=== PATIENT | male | born 1955 | race Caucasian/White ===

== ENCOUNTER 2016-06-27 16:30 | Emergency (ER) | payer BC, OTHER ==
[2016-06-27] MEDS ORDERED: MORPHINE 4 MG/ML SYR ONE (16:50)
[2016-06-27] MEDS ORDERED: ONDANSETRON 4 MG VIAL ONE (16:50)
[2016-06-27] MEDS ORDERED: TDaP 0.5 ML VIAL IM.VACC ONE (16:50)
[2016-06-27] MEDS ORDERED: DILAUDID 1 MG/ML AMP ONE (18:28)
== END 2016-06-27 18:35 | disposition other institution (70) ==
LOC: ER 16:30
DX: S68.123A Partial traumatic metacarpophalangeal amputation of left middle finger, initial encounter (principal); W31.89XA Contact with other specified machinery, initial encounter; Y92.513 Shop (commercial) as the place of occurrence of the external cause; Y99.9 Unspecified external cause status
CPT/HCPCS: 90471; 96374; 96375